=== PATIENT | female | born 1990 | race African-American/Black ===

== ENCOUNTER 2016-12-15 09:15 | Emergency (ER) | payer MEDICAID ==
[2016-12-15] MEDS ORDERED: KETOROLAC TROMETHAMINE 60 MG/2 ML SDV IM ONE (09:59)
--- NOTE | 2016-12-15 10:06 | ER Document Report ---
ED Neck/Back Problem - General Chief Complaint: Back Pain Stated Complaint: FALL BACK PAIN Notes: 26 yo female c/o left sided low back pain after falling in shower yesterday. heard her daughter crying, tried to get out of shower quickly, and slipped in shower. did not hit head. no LOC. + radiculopathy to left hip. no paresthesia, no bowel/bladder change. able to walk without difficulty. pt is on pain management with PCM for chronic back pain. TRAVEL OUTSIDE OF THE [place] IN LAST 30 DAYS: No - HPI Patient complains to provider of: Pain, Injury Onset: Yesterday Where: Home Onset: Sudden Timing: Constant Quality of pain: Burning, Sharp Pain Level: 4 Associated symptoms: Like prior neck/back pain, Radiation to leg - left, Lower back pain. denies: Fever, Numbness/tingling, Unable to urinate Exacerbated by: Movement of neck Relieved by: Nothing Similar symptoms previously: Yes - Related Data Allergies/Adverse Reactions: No Known Allergies Allergy (Verified 12/15/16 09:19) Past Medical History - General Information source: Patient - Social History Smoking Status: Current Every Day Smoker - 3-4 cig/d Smoking Education Provided: Yes Frequency of alcohol use: None Drug Abuse: None Lives with: Family Family History: None, Reviewed & Not Pertinent Patient has suicidal ideation: No Patient has homicidal ideation: No - Medical History Medical History: Negative Endocrine Medical History: Denies: Hx Diabetes Mellitus Type 1, Hx Diabetes Mellitus Type 2 Renal/ Medical History: Denies: Hx Peritoneal Dialysis Musculoskeltal Medical History: Reports Other - chronic back pain Past Surgical History: Reports: Hx Section - x3, Hx Tubal Ligation - Immunizations Hx Diphtheria, Pertussis, Tetanus Vaccination: Yes - 2005 Hx Pneumococcal Vaccination: 08/25/00 Review of Systems - Review of Systems Constitutional: No symptoms reported EENT: No symptoms reported Cardiovascular: No symptoms reported Respiratory: No symptoms reported Gastrointestinal: No symptoms reported Genitourinary: No symptoms reported Female Genitourinary: No symptoms reported Musculoskeletal: See HPI Skin: No symptoms reported Hematologic/Lymphatic: No symptoms reported Neurological/Psychological: No symptoms reported Physical Exam - Vital signs Vitals: Temp Pulse Resp BP Pulse Ox 98.2 F 113 H 20 124/71 100 12/15/16 09:19 12/15/16 09:19 12/15/16 09:19 12/15/16 09:19 12/15/16 09:19 Interpretation: Normal - General General appearance: Appears well, Alert - HEENT Head: Normocephalic, Atraumatic Eyes: Normal Pupils: PERRL - Respiratory Respiratory status: No respiratory distress Chest status: Nontender Breath sounds: Normal Chest palpation: Normal - Cardiovascular Rhythm: Regular Heart sounds: Normal auscultation Murmur: No - Abdominal Inspection: Normal Distension: No distension Bowel sounds: Normal Tenderness: Nontender Organomegaly: No organomegaly - Back Back: Normal, Tender - left lumbar paraspinal tenderness. no vertebral tenderness. + pain left SI. + left SLT.. No: Deformity/step-off, Vertebra tenderness - Extremities General upper extremity: Normal inspection, Nontender, Normal color, Normal ROM , Normal temperature General lower extremity: Normal inspection, Nontender, Normal color, Normal ROM , Normal temperature, Normal weight bearing. No: Luci's sign - Neurological Neuro grossly intact: Yes Cognition: Normal Orientation: AAOx4 Galliano Coma Scale Eye Opening: Spontaneous Laurence Coma Scale Verbal: Oriented Galliano Coma Scale Motor: Obeys Commands Laurence Coma Scale Total: 15 Speech: Normal Motor strength normal: LUE, RUE, LLE, RLE Sensory: Normal - Psychological Associated symptoms: Normal affect, Normal mood - Skin Skin Temperature: Warm Skin Moisture: Dry Skin Color: Normal Course - Re-evaluation Re-evalutation: 12/15/16 10:04 H&P c/w lumbar strain. no indication for cauda equina, epidural abscess, fractures or cord impingement. VSS, afebrile, walks witout difficulty. will treat with muscle relaxant and anti inflammatory. pt on pain med from PCM. recommend follow up with PCM tomorrow. pt agrees with plan and is stable for discharge. - Vital Signs Vital signs: Temp Pulse Resp BP Pulse Ox 98.2 F 113 H 20 124/71 100 12/15/16 09:19 12/15/16 09:19 12/15/16 09:19 12/15/16 09:19 12/15/16 09:19 Discharge - Discharge Clinical Impression: Lumbar strain Qualifiers: Encounter type: initial encounter Qualified Code(s): S39.012A - Strain of muscle, fascia and tendon of lower back, initial encounter Condition: Stable Disposition: HOME, SELF-CARE Instructions: Low Back Pain ([facility]), Muscle Strain ([facility]), Ice Packs ([facility]), Warm Packs ([facility]), Toradol Injection ([facility]) Additional Instructions: Please take medications as prescribed Alternate ice/heat to sore area Continue Ultram as prescribed Follow up with your primary care tomorrow Prescriptions: Ibuprofen [Motrin 800 mg Tablet] 800 mg PO Q8H PRN #30 tab PRN Reason: Methocarbamol [Robaxin 500 Mg Tablet] 1,000 mg PO Q6 #30 tablet
[2016-12-15 10:16] VITALS: BP 117/68
== END 2016-12-15 10:20 | disposition home or self-care (01) ==
LOC: ER 09:15
DX: S39.012A Strain of muscle, fascia and tendon of lower back, initial encounter (principal); M54.9 Dorsalgia, unspecified; W18.2XXA Fall in (into) shower or empty bathtub, initial encounter; F17.210 Nicotine dependence, cigarettes, uncomplicated
CPT/HCPCS: 99283; 96372; J1885

== ENCOUNTER 2020-03-10 20:11 | Emergency (ER) | payer SELFPAY ==
--- NOTE | 2020-03-10 20:53 | ER Document Report ---
ED Medical Screen (RME) - General Chief Complaint: Abdominal Pain Stated Complaint: ABDOMINAL PAIN Time Seen by Provider: 03/10/20 20:50 Primary Care Provider: SCOTTY SEVILLA DO [Primary Care Provider] - Follow up as needed Mode of Arrival: Ambulatory Information source: Patient Notes: 29-year-old female presented to ED for complaint of right upper quadrant of abdominal pain that started this morning. She states it has been persistent all day. She states eating and drinking does not affect the pain. She states she does not have any nausea or vomiting. She states she does smoke 1/2 pack a day denies alcohol or drug use. States last menstrual period started yesterday. States the only past medical history she has had 2 C-sections. Patient is alert oriented respirations regular nonlabored speaking in full sentences. Patient does have tenderness to the right upper quadrant at this time. I have greeted and performed a rapid initial assessment of this patient. A comprehensive ED assessment and evaluation of the patient, analysis of test results and completion of medical decision making process will be conducted by an additional ED providers. TRAVEL OUTSIDE OF THE [place] IN LAST 30 DAYS: No - Related Data Allergies/Adverse Reactions: No Known Allergies Allergy (Verified 12/15/16 09:19) Past Medical History Endocrine Medical History: Denies: Hx Diabetes Mellitus Type 1, Hx Diabetes Mellitus Type 2 Renal/ Medical History: Denies: Hx Peritoneal Dialysis Past Surgical History: Reports: Hx Section - x3, Hx Tubal Ligation - Immunizations Hx Diphtheria, Pertussis, Tetanus Vaccination: Yes - 2005 Physical Exam - Vital signs Vitals: Temp Pulse Resp BP Pulse Ox 98.9 F 106 H 18 131/69 H 100 03/10/20 20:18 03/10/20 20:18 03/10/20 20:18 03/10/20 20:18 03/10/20 20:18 Course - Vital Signs Vital signs: Temp Pulse Resp BP Pulse Ox 98.9 F 106 H 18 131/69 H 100 03/10/20 20:18 03/10/20 20:18 03/10/20 20:18 03/10/20 20:18 03/10/20 20:18 Doctor's Discharge - Discharge Referrals: SCOTTY SEVILLA DO [Primary Care Provider] - Follow up as needed
[2020-03-10 21:23] LABS: ABSOLUTE BASOPHILS # (AUTO) 0.1 10^3/uL (0.0-0.2); ABSOLUTE MONOCYTES (AUTO) 0.7 10^3/uL (0.1-1.4); RED CELL DISTRIBUTION WIDTH 14.6 % (11.5-14.0); TOTAL CELLS COUNTED % (AUTO) 100 %
[2020-03-10 21:31] LABS: ABSOLUTE EOSINOPHILS # (AUTO) 0.1 10^3/uL (0.0-0.6); ABSOLUTE LYMPHOCYTES (AUTO) 2.2 10^3/uL (0.5-4.7); ABSOLUTE NEUT (AUTO) 4.7 10^3/uL (1.7-8.2); BASOPHILS % (AUTO) 0.7 % (0-2); EOSINOPHILS % (AUTO) 0.7 % (0-6); HEMATOCRIT 38.6 % (36.0-47.0); MEAN CORPUSCULAR HEMOGLOBIN 28.2 pg (27.0-33.4); MEAN CORPUSCULAR HGB CONC 33.7 g/dL (32.0-36.0); MEAN CORPUSCULAR VOLUME 84 fl (80-97); MONOCYTES % (AUTO) 9.7 % (3-13); PLATELET COUNT 202 10^3/uL (150-450); RED BLOOD COUNT 4.62 10^6/uL (3.72-5.28); SEGMENTED NEUTROPHILS % (AUTO) 60.9 % (42-78); WHITE BLOOD COUNT 7.7 10^3/uL (4.0-10.5)
[2020-03-10 21:35] LABS: APPEARANCE,URINE CLOUDY; BILIRUBIN,URINE NEGATIVE (NEGATIVE); COLOR,URINE YELLOW; GLUCOSE, URINE NEGATIVE (NEGATIVE); KETONES,URINE NEGATIVE (NEGATIVE); LEUKOCYTE ESTERASE,URINE LARGE (NEGATIVE); NITRITE,URINE POSITIVE (NEGATIVE); PROTEIN,URINE 30 mg/dL (NEGATIVE); URINE SPECIFIC GRAVITY 1.023
[2020-03-10 21:49] LABS: ALKALINE PHOSPHATASE 66 U/L (38-126); ANION GAP 12 (5-19); ASPARTATE AMINO TRANSFERASE 22 U/L (14-36); BILIRUBIN,DIRECT 0.1 mg/dL (0.0-0.4); BILIRUBIN,TOTAL 0.7 mg/dL (0.2-1.3); BLOOD UREA NITROGEN 9 mg/dL (7-20); CALCIUM 9.5 mg/dL (8.4-10.2); CARBON DIOXIDE 26 mmol/L (22-30); CHLORIDE 102 mmol/L (98-107); GLUCOSE 85 mg/dL (75-110); TOTAL PROTEIN 8.5 g/dL (6.3-8.2)
--- NOTE | 2020-03-10 21:52 | RADIOLOGY REPORT (SQ) ---
EXAM DESCRIPTION: US ABDOMEN LIMITED COMPLETED DATE/TME: 03/10/2020 20:51 CLINICAL HISTORY: 29 years, Female, ruq abdominal pain COMPARISON: None. TECHNIQUE: Axial 2-D grayscale images of the abdomen were acquired. Doppler was utilized. LIMITATIONS: None. FINDINGS: Visualized portions of the pancreas appear normal in echogenicity. Visualized portions of the abdominal aorta and IVC appear normal in caliber. The liver is normal in echogenicity. It measures 15 cm in length. Antegrade flow is documented within the main portal vein. Right kidney measures 8.9 x 4.6 x 5.8 cm in size. No evidence of hydronephrosis. Common bile duct diameter measures 1 to 2 mm. No gallstones. Gallbladder wall thickness measures 2 mm. Sonographic Boyer sign was negative. No significant free fluid was identified within the imaged right upper quadrant. IMPRESSION: No acute sonographic abnormality. copyright 2010 [employer]- All Rights Reserved
[2020-03-11] MEDS ORDERED: HYDROCODONE/ACETAMINOPHEN 5-325 MG (6 TAB/ER DISP) PO PRN (01:28)
[2020-03-11] MEDS ORDERED: CEPHALEXIN 500 MG CAPSULE PO ONE (01:28)
--- NOTE | 2020-03-11 01:30 | ER Document Report ---
ED General - General Chief Complaint: Abdominal Pain Stated Complaint: ABDOMINAL PAIN Time Seen by Provider: 03/10/20 20:50 Primary Care Provider: SCOTTY SEVILLA DO [Primary Care Provider] - Follow up as needed Mode of Arrival: Ambulatory TRAVEL OUTSIDE OF THE [place] IN LAST 30 DAYS: No - HPI Notes: Patient is a 29-year-old female who presents to the emergency department for evaluation of right upper quadrant pain. She points to 1 spot in her right up per abdomen. She states is worsened by movement. It was present when she woke up this morning, is been there all day. It seems to be worsened by sitting up, nothing really seems to make it better. Is not changed by food. She has been eating and drinking normally all day. No fevers or chills. No nausea or vomiting. Normal bowel movements. She states she has been urinating more frequently. She denies any hematuria or dysuria. - Related Data Allergies/Adverse Reactions: No Known Allergies Allergy (Verified 12/15/16 09:19) Past Medical History - General Information source: Patient - Social History Smoking Status: Current Every Day Smoker Family History: None, Reviewed & Not Pertinent Endocrine Medical History: Denies: Hx Diabetes Mellitus Type 1, Hx Diabetes Mellitus Type 2 Renal/ Medical History: Denies: Hx Peritoneal Dialysis Past Surgical History: Reports: Hx Section - x3, Hx Tubal Ligation - Immunizations Hx Diphtheria, Pertussis, Tetanus Vaccination: Yes - 2005 Hx Pneumococcal Vaccination: 08/25/00 Review of Systems - Review of Systems Gastrointestinal: See HPI Genitourinary: See HPI -: Yes All other systems reviewed and negative Physical Exam - Vital signs Vitals: Temp Pulse Resp BP Pulse Ox 98.9 F 106 H 18 131/69 H 100 03/10/20 20:18 03/10/20 20:18 03/10/20 20:18 03/10/20 20:18 03/10/20 20:18 - Notes Notes: This is a pleasant 29-year-old female who appears her stated age, no acute distress. Vital signs reviewed, please refer to chart. Head is normocephalic, atraumatic. Pupils equal round, reactive to light. Neck is supple without meningismus. Heart is regular rate and rhythm. Lungs are clear to auscultation bilaterally. Abdomen is soft, mildly tender in the right upper quadrant without rebound or guarding, normoactive bowel sounds throughout. No CVA tenderness noted. Extremities without cyanosis, clubbing. Posterior calves are nontender. Peripheral pulses are equal. Skin is warm and dry. Patient is awake, alert, neurological exam is nonfocal. Course - Re-evaluation Re-evalutation: 03/11/20 01:33 Patient presents to the emergency department for evaluation of right upper quadrant pain and tenderness, as well as urinary symptoms. Laboratory investigations were obtained. She has no leukocytosis. She has normal LFTs, normal renal function. She does have a nitrate positive urine specimen. Ult rasound failed to reveal any significant abnormalities. Given the location of her pain as well as a UTI, I am inclined to treat her with Keflex but had a pyelonephritis dosage and duration of treatment. We talked at length about biliary colic and other conditions that could cause her symptoms. She states her pain is not changed by food. She said no fevers or vomiting. Normal stools. It seems unlikely to be related to gallbladder pathology, but I did encourage her to follow-up with primary care next week. She is also told she should have her urine rechecked. She voiced understanding. She was given a to go pack of [place] here. She was given her first dose of Keflex. I will send her home with a 10-day course of 4 times daily Keflex. She is to return to the ED with worsening or new concerning symptoms of any sort. - Vital Signs Vital signs: Temp Pulse Resp BP Pulse Ox 98.9 F 106 H 18 131/69 H 100 03/10/20 20:18 03/10/20 20:18 03/10/20 20:18 03/10/20 20:18 03/10/20 20:18 - Laboratory Result Diagrams: 03/10/20 21:08 03/10/20 21:08 Laboratory results interpreted by me: 03/10/20 03/10/20 03/10/20 21:08 21:08 21:08 RDW 14.6 H Total Protein 8.5 H Urine Protein 30 H Urine Blood LARGE H Urine Nitrite POSITIVE H Urine Urobilinogen 2.0 H Ur Leukocyte Esterase LARGE H Urine Ascorbic Acid 40 H Discharge - Discharge Clinical Impression: Right upper quadrant pain Urinary tract infection Qualifiers: Urinary tract infection type: site unspecified Hematuria presence: without hematuria Qualified Code(s): N39.0 - Urinary tract infection, site not specified Condition: Stable Disposition: HOME, SELF-CARE Instructions: Abdominal Pain ([facility]), Cephalexin ([facility]), Urinary Tract Infection ([facility]) Additional Instructions: Take all the antibiotic as prescribed until it is gone. If you develop fevers, vomiting, increased pain, or any other new or concerning symptoms, please return immediately to the emergency department for evaluation. Otherwise, follow-up with primary care next week. Prescriptions: Cephalexin Monohydrate [Keflex 500 mg Capsule] 500 mg PO QID #40 capsule Referrals: SCOTTY SEVILLA DO [Primary Care Provider] - Follow up as needed
[2020-03-11 02:21] VITALS: BP 130/70
== END 2020-03-11 02:21 | disposition home or self-care (01) ==
LOC: ER 20:11
DX: N39.0 Urinary tract infection, site not specified (principal); R10.11 Right upper quadrant pain; F17.200 Nicotine dependence, unspecified, uncomplicated
CPT/HCPCS: 36415; 76705; 80053; 81001; 83690; 84703; 85025; 87086; 87088; 87186; 99284